=== PATIENT | female | born 1945 | race Caucasian/White ===

== ENCOUNTER 2017-12-26 10:59 | Emergency (ER) | payer MEDICARE, OTHER ==
[2017-12-26 11:48] VITALS: BP 117/76
--- NOTE | 2017-12-26 12:25 | UC ---
Throat Pain/Nasal Sammy HPI - HPI Summary HPI Summary: 72 female presents to the urgent care c/o throat pain since Wednesday12/24/2017. Pt reports pain w/ swallowing is 7/10. She noticed white spots in her mouth and today B/L ear are bothering her. She has not taking anything to alleviate symptoms. Pt denies fever, [place], dizziness, SOB, cough, chest pain, abdominal pain , N/V/D. 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 Negative: Sinus Discomfort, Nasal Discharge, Fever - Epiglottits Risk Factors Epiglottis Risk Factors: Negative - Allergies/Home Medications Allergies/Adverse Reactions: Allergies Allergy/AdvReac Type Severity Reaction Status Date / Time MS Neomycin [Neomycin] Allergy Severe Anaphylatic Verified 12/26/17 11:32 Shock MS Erythromycin Allergy Intermediate Rash Verified 12/26/17 11:32 [Erythromycin] MS Cimetidine Allergy Rash Verified 12/26/17 11:32 [From [facility]] MS Clindamycin [Clindamycin] Allergy Rash Verified 12/26/17 11:32 Shingles Vaccine Allergy Severe Anaphylatic Uncoded 12/26/17 11:32 Shock Home Medications: Home Medications Butalb/Acetamin/Caff TAB* [Fioricet TAB*] 12/26/17 [History] Gabapentin CAP(*) [Neurontin 300 CAP(*)] 12/26/17 [History] Oxycodone HCl [Oxycontin 40 mg] 12/26/17 [History] PMH/Surg Hx/FS Hx/Imm Hx Previously Healthy: Yes Endocrine History: Dyslipidemia Cardiovascular History: Hypertension Respiratory History: Asthma GI/ History: Gastroesophageal Reflux Other Neurological History: DDD, Neuropathy Other History Of: Negative For: Anticoagulant Therapy - Surgical History Surgical History: Yes Surgery Procedure, Year, and Place: LUMBAR DISCECTOMY, HYSTERECTOMY, KYPHOPLASTY THORACIC AREA X2, APPENDECTOMY,CATARACTS,NECK BIOPSY, RT BREAST BIOPSY X2, BONE BIOPSY,TONSILECTOMY - Family History Known Family History: Positive: Hypertension - Social History Occupation: Retired Lives: With Family Alcohol Use: Rare Alcohol Amount: 1 Substance Use Type: None Smoking Status (MU): Never Smoked Tobacco Have You Smoked in the Last Year: No Review of Systems Constitutional: Negative Skin: Negative Eyes: Negative ENT: Sore Throat, Ear Ache - B/L ear pain Respiratory: Negative Cardiovascular: Negative Gastrointestinal: Negative Genitourinary: Negative Motor: Negative Neurovascular: Negative Musculoskeletal: Negative Neurological: Negative Psychological: Negative Is Patient Immunocompromised?: No All Other Systems Reviewed And Are Negative: Yes Physical Exam - Summary Physical Exam Summary: VITAL SIGNS: Reviewed. GENERAL: Patient is a well developed and nourished old female who is sitting comfortable in the examining table. Patient is not in any acute respiratory distress. HEAD AND FACE: No signs of trauma. No ecchymosis, hematomas or skull depressions. No sinus tenderness. EYES: PERRLA, EOMI x 2, No injected conjunctiva, no nystagmus. No photophobia. EARS: Hearing grossly intact. Ear canals and tympanic membranes are within normal limits. MOUTH: Positive pharynx with mild erythema, no exudates, no palatal petechiae. B/L tonsillar enlargement with no exudate. Uvula in midline. tongue w/ creamy white plaques fairly adherent to the oral mucosa NECK: Supple, trachea is midline, Positive anterior cervical lymphadenopathy, no JVD, no carotid bruit, no c-spine tenderness, neck with full ROM. No meningeal signs, no Kernig's or brudzinskis signs. CHEST: Symmetric, no tenderness at palpation LUNGS: Clear to auscultation bilaterally. No wheezing or crackles. CVS: Regular rate and rhythm, S1 and S2 present, no murmurs or gallops appreciated. ABDOMEN: Soft, non-tender. No signs of distention. No rebound no guarding, and no masses palpated. Bowel sounds are normal. EXTREMITIES: FROM in all major joints, no edema, no cyanosis or clubbing. NEURO: Alert and oriented x 3. No acute neurological deficits. Speech is normal and follows commands. SKIN: Dry and warm Triage Information Reviewed: Yes Vital Signs: Initial Vital Signs Temp 99.4 F 12/26/17 11:42 Pulse 78 08/19/18 11:42 Resp 18 12/26/17 11:42 BP 117/76 12/26/17 11:42 Pulse Ox 95 12/26/17 11:42 Throat Pain/Nasal Course/Dx - Course Course Of Treatment: 72 female presents to the urgent care c/o throat pain since Wednesday12/24/2017. Pt reports pain w/ swallowing is 7/10. She noticed white spots in her mouth and today B/L ear are bothering her. She has not taking anything to alleviate symptoms. Pt denies fever, [place], dizziness, SOB, cough, chest pain, abdominal pain, N/V/D. Hx obtained,Strep test ordered: negative. Pt w/ oral candidiasis on examination. Pt Rx Nystatin PO and Chlorhexidine Mouth wash to alleviate symptoms. Pt advised to f/u w/ PCP if not improvement of symptoms. Pt understood and agreed w/ plan of care. - Differential Dx/Diagnosis Differential Diagnosis/HQI/PQRI: Laryngitis, Mononucleosis, Otitis Media, Pharyngitis, Tonsillitis, URI, Other - thrush Provider Diagnoses: 1- Oral Candidiasis Discharge - Sign-Out/Discharge Documenting (check all that apply): Patient Departure - D/C home All imaging exams completed and their final reports reviewed: Yes - Discharge Plan Condition: Stable Disposition: HOME Prescriptions: Chlorhexidine MOUTHWASH 0.12%* [Peridex Mouth Wash 0.12%*] 15 ml .SEE ORDER BID #1 oral.soln Nystatin SUSPENSION ORAL SYR* 4 ml PO QID #1 bottle Patient Education Materials: Oral Candidiasis (ED) Referrals: Mary Mitchell MD [Primary Care Provider] - 3 Days Additional Instructions: 1- TAke Nystatin PO as directed and Chlorhexidine oropharyngeal as directed to alleviate symptoms. 2-Please take Tylenol PO q6-8hrs prn as instructed after meals to alleviate pain and swelling. Increase fluid intake, eat well, rest and avoid strenuous exercise 3-Please f/u w/ your PCP for further evaluation and treatment on your DM type II or if not improvement of symptoms. - Billing Disposition and Condition Condition: STABLE Disposition: Home
== END 2017-12-26 13:02 | disposition home or self-care (01) ==
LOC: UCEAST 10:59
DX: B37.0 Candidal stomatitis (principal); Z88.1 Allergy status to other antibiotic agents; I10 Essential (primary) hypertension; G62.9 Polyneuropathy, unspecified
CPT/HCPCS: 87651; 99212; G0463